=== PATIENT | male | born 1965 ===

== ENCOUNTER 2018-03-27 10:35 | Day surgery (SDC) | payer OTHER ==
[~2018-03-27 10:35] MED LIST: Lactated Ringers 1,000 ML IV SCH; Lidocaine 1%/Sod Bicarbonate in NS 8.4% 1 ML Syringe IDERM PRN; Sodium Chloride 0.9% 10 ML Syringe FLUSH PRN
[2018-03-27] MEDS ORDERED: Ondansetron 4 MG/2 ML SDV ONE (11:14)
[2018-03-27] MEDS ORDERED: fentaNYL 100 MCG/2 ML SDV ONE (11:15)
[2018-03-27] MEDS ORDERED: Propofol 200 MG/20 ML SDV ONE (11:15)
[2018-03-27] MEDS ORDERED: Lidocaine 1% 4 ML ONE (11:15)
--- NOTE | 2018-03-27 11:30 | PCM.PREANE ---
Preanesthetic Assessment - Procedure Proposed Procedure: Screening Colonoscopy - Anesthesia/Transfusion/Family Hx Anesthesia History: Prior Anesthesia Without Reaction Family History of Anesthesia Reaction: No - Review of Systems General: No Symptoms Pulmonary: No Symptoms, Other (Asthma triggered mostly by grain dust. CAROLYNN with CPAP. ) Cardiovascular: No Symptoms Gastrointestinal: No Symptoms Neurological: No Symptoms Other: Reports: None - Physical Assessment NPO Status Date: 03/26/18 NPO Status Time: 19:00 O2 Sat by Pulse Oximetry: 93 Respiratory Rate: 16 Vital Signs: Last Vital Signs Temp 36.9 C 03/27/18 10:50 Pulse 60 03/27/18 10:50 Resp 16 03/27/18 10:50 BP 124/78 03/27/18 10:50 Pulse Ox 93 L 03/27/18 10:50 Height: 1.83 m Weight: 111.13 kg ASA Class: 2 Mental Status: Alert & Oriented x3 Airway Class: Mallampati = 1 Dentition: Reports: Normal Dentition Thyro-Mental Finger Breadths: 3 Mouth Opening Finger Breadths: 3 ROM/Head Extension: Full Lungs: Clear to Auscultation, Normal Respiratory Effort, Decreased Breath Sounds Cardiovascular: Regular Rate, Regular Rhythm - Allergies Allergies/Adverse Reactions: Allergies Allergy/AdvReac Type Severity Reaction Status Date / Time No Known Allergies Allergy Verified 03/26/18 14:15 - Acknowledgements Anesthesia Type Planned: MAC Pt an Appropriate Candidate for the Planned Anesthesia: Yes Alternatives and Risks of Anesthesia Discussed w Pt/Guardian: Yes Pt/Guardian Understands and Agrees with Anesthesia Plan: Yes PreAnesthesia Questionnaire HEENT History: Reports: Impaired Vision Cardiovascular History: Reports: High Cholesterol Respiratory History: Reports: Asthma, Sleep Apnea Gastrointestinal History: Reports: None Genitourinary History: Reports: None 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 History: Reports: 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 Musculoskeletal History: Reports: Gout, Other (See Below) Other Musculoskeletal History: muscle spasms Neurological History: Reports: None Psychiatric History: Reports: None Endocrine/Metabolic History: Reports: None Hematologic History: Reports: None Immunologic History: Reports: None Oncologic (Cancer) History: Reports: None Dermatologic History: Reports: Other (See Below) Other Dermatologic History: hidradenitis supravativa - Past Surgical History HEENT Surgical History: Reports: None Cardiovascular Surgical History: Reports: None Respiratory Surgical History: Reports: None GI Surgical History: Reports: Appendectomy Female Surgical History: Reports: None Male Surgical History: Reports: None Endocrine Surgical History: Reports: None Neurological Surgical History: Reports: Other (See Below) Other Neurological Surgeries/Procedures: low back surgery with hardware Oncologic Surgical History: Reports: None Dermatological Surgical History: Reports: None - SUBSTANCE USE Smoking Status *Q: Never Smoker Recreational Drug Use History: No - HOME MEDS Home Medications: Home Meds Albuterol [Ventolin HFA] 1 - 2 puff INH Q4H PRN 03/26/18 [History] Clindamycin Phos/Benzoyl Perox [Clindamycin-Benzoyl Perox 1-5%] 1 dose TOP BEDTIME 03/26/18 [History] Colchicine [Colcrys] 0.6 mg PO ASDIRECTED PRN 03/26/18 [History] Fluticasone/Salmeterol [Advair 100-50] 1 puff INH DAILY 03/26/18 [History] Lactobacillus Combination No.4 [Probiotic] 1 cap PO DAILY 03/26/18 [History] Multivitamin [Poly-Vitamin] 1 tab PO DAILY 03/26/18 [History] Rosuvastatin Calcium 10 mg PO BEDTIME 03/26/18 [History] - CURRENT (IN HOUSE) MEDS Current Meds: Current Medications Lactated Ringer's (Ringers, Lactated) 1,000 mls @ 125 mls/hr IV ASDIRECTED ARUNA Stop: 03/27/18 23:00 Last Admin: 03/27/18 11:05 Dose: 125 mls/hr Lidocaine/Sodium Bicarbonate (Buffered Lidocaine 1% In Ns 8.4%) 0.25 ml IDERM ONETIME PRN PRN Reason: Prior to IV Start Stop: 03/27/18 18:00 Last Admin: 03/27/18 11:05 Dose: 0.25 ml Sodium Chloride (Saline Flush) 10 ml FLUSH ASDIRECTED PRN PRN Reason: Keep Vein Open Stop: 03/27/18 18:00 Discontinued Medications Fentanyl (Sublimaze) Confirm Administered Dose 100 mcg .ROUTE .STK-MED ONE Stop: 03/27/18 11:16 Lidocaine HCl (Xylocaine-Mpf 1%) Confirm Administered Dose 4 mls @ as directed .ROUTE .STK-MED ONE Stop: 03/27/18 11:16 Ondansetron HCl (Zofran) Confirm Administered Dose 4 mg .ROUTE .STK-MED ONE Stop: 03/27/18 11:15 Propofol (Diprivan 20 Ml) Confirm Administered Dose 400 mg .ROUTE .STK-MED ONE Stop: 03/27/18 11:16
--- NOTE | 2018-03-27 12:22 | PCM.OPNOTE ---
- General Post-Op/Procedure Note Date of Surgery/Procedure: 03/27/18 Operative Procedure(s): Colonoscopy with sigmoid polypectomy Findings: 1. Diminutive sigmoid polyp less than 5 mm in size 2. Two small sigmoid diverticula 3. Uncomplicated internal hemorrhoids Pre Op Diagnosis: Screening colonoscopy Post-Op Diagnosis: 1. Diminutive sigmoid polyp less than 5 mm in size. 2. Two small sigmoid diverticula. 3. Uncomplicated internal hemorrhoids Anesthesia Technique: MAC, Moderate Sedation Primary Surgeon: Harry Kaye Pathology: Small polyp Complications: None Condition: Good Free Text/Narrative:: After adequate IV sedation and analgesia was obtained with monitoring the patient was placed on his left side. Perianal inspection and digital rectal examination were performed next and were grossly normal. A lubricated colonoscope was inserted into the rectum and advanced to the cecum without difficulty. The bowel preparation was excellent. The cecum ascending colon and transverse colons were endoscopically normal with no mass lesions or inflammatory changes seen. The descending and sigmoid were remarkable only for 2 small diverticula in the the sigmoid and one diminutive polyp in the distal sigmoid which was removed. In the retroflexed rectal view there were some prominent hemorrhoidal columns. These were uncomplicated. Photographs were taken for the patient and for the medical record.
--- NOTE | 2018-03-27 12:29 | PCM48HPAN ---
Post Anesthesia Note - EVALUATION WITHIN 48HRS OF ANESTHETIC Vital Signs in Normal Range: Yes Patient Participated in Evaluation: Yes Respiratory Function Stable: Yes Airway Patent: Yes Cardiovascular Function Stable: Yes Hydration Status Stable: Yes Pain Control Satisfactory: Yes Nausea and Vomiting Control Satisfactory: Yes Mental Status Recovered: Yes Pulse Rate: 71 SaO2: 93 Resp Rate: 17 Temperature: 37.3 C Blood Pressure: 130/71
[2018-03-27 12:59] VITALS: BP 125/83
== END 2018-03-27 12:57 | disposition home or self-care (01) ==
LOC: JD.SDS 10:35
PROVIDERS: ATTEND Surgery
DX: Z12.11 Encounter for screening for malignant neoplasm of colon (principal); K63.5 Polyp of colon; K64.8 Other hemorrhoids; K57.30 Diverticulosis of large intestine without perforation or abscess without bleeding; J45.909 Unspecified asthma, uncomplicated; E78.00 Pure hypercholesterolemia, unspecified; G47.33 Obstructive sleep apnea (adult) (pediatric); Z99.89 Dependence on other enabling machines and devices; Z79.899 Other long term (current) drug therapy
CPT/HCPCS: 45380; J2001; J2405; J3010; J7120; J2704